=== PATIENT | female | born 1940 | race Caucasian/White ===

== ENCOUNTER 2020-05-23 10:08 | Inpatient (IN) ==
[2020-05-23] MEDS ORDERED: Ipratropium/Albuterol Neb 3 ML IH ONE (10:19)
[2020-05-23] MEDS ORDERED: Aspirin 81 MG TAB.CHEW PO STA (10:19)
[2020-05-23] MEDS ORDERED: methylPREDNISolone 125 MG/2 ML VIAL IVP ONE (10:19)
[2020-05-23 11:13] LABS: Basophils % 0.2 %; Eosinophils % 0.2 %; Hematocrit 41.6 % (35.3-44.9); Hemoglobin 12.9 g/dL (11.5-15.4); Immature Granulocytes % 0.5 % (0-4); Lymphocytes # 0.4 K/mcL (0.6-4.6); Lymphocytes % 4.2 %; Mean Corpuscular Hemoglobin 27.3 pg (28.0-33.3); Mean Corpuscular Volume 88.1 fL (83.0-100.0); Mean Platelet Volume 9.5 fL (9.4-12.4); Monocytes # 0.7 K/mcL (0.0-1.3); Monocytes % 7.8 %; Neutrophils # 8.1 K/mcL (1.6-8.9); Platelet Count 308 K/mcL (140-400); Red Blood Count 4.72 M/mcL (3.82-4.97); Red Cell Distribution Width 13.8 % (11.5-14.5); Segmented Neutrophils % 87.1 %; White Blood Count 9.3 K/mcL (4.3-11.1)
[2020-05-23 11:17] LABS: VBG HCO3 28 mEq/L (21-27); VBG PCO2 44 mmHg (41-51); VBG PH 7.41 pH Units (7.32-7.42); VBG PO2 46 mmHg (25-50)
[2020-05-23 11:18] LABS: INR 1.1; Prothrombin Time 12.9 Seconds (9.4-12.1)
[2020-05-23 11:21] LABS: Activated Partial Thrombo Time 29.3 Seconds (26.0-36.0)
[2020-05-23] MEDS ORDERED: Isovue-370 500 ML BOTTLE IVP ONE ×2 (11:28→18:03)
[2020-05-23 11:35] LABS: Alanine Aminotransferase 8 Units/L (7-52); Albumin 3.4 g/dL (3.5-5.7); Albumin/Globulin Ratio 1.2 (1.1-2.2); Alkaline Phosphatase 215 Units/L (34-104); Aspartate Amino Transferase 16 Units/L (13-39); BUN/Creatinine Ratio 28 (6-26); Bilirubin,Direct 0.1 mg/dL (0.0-0.2); Bilirubin,Indirect 0.4 mg/dL (0.0-1.0); Bilirubin,Total 0.5 mg/dL (0.3-1.0); Blood Urea Nitrogen 18 mg/dL (8-23); Calcium 8.8 mg/dL (8.6-10.3); Carbon Dioxide 27 mEq/L (23-29); Chloride 102 mEq/L (98-107); Globulin 2.9 g/dL (2.4-3.5); Glucose 128 mg/dL (70-105); Osmolality,Calculated 292 (280-300); Potassium 3.8 mEq/L (3.5-5.1); Sodium 139 mEq/L (136-145); Total Protein 6.3 g/dL (6.4-8.9); Troponin I < 0.03 ng/mL (< 0.04); eGFR For African Americans > 60 (> 60); eGFR For Non-African Americans > 60 (> 60)
[2020-05-23] MEDS ORDERED: Ondansetron 4 MG/2 ML VIAL IVP PRN (14:58)
[2020-05-23] MEDS ORDERED: Naloxone 0.4 MG/ML INJ IVP PRN (14:58)
[2020-05-23] MEDS: Ipratropium/Albuterol Neb 3 ML IH SCH ×2 (15:27→21:54)
[2020-05-23] MEDS: *HR* Heparin 5,000 UNIT/ML VIAL SQ SCH (17:55)
[2020-05-23] MEDS: lisinopriL 10 MG TABLET PO SCH (21:28)
[2020-05-24] MEDS: Ipratropium/Albuterol Neb 3 ML IH SCH ×4 (03:56→22:43)
[2020-05-24 04:12] LABS: BUN/Creatinine Ratio 32 (6-26); Blood Urea Nitrogen 14 mg/dL (8-23); Calcium 8.4 mg/dL (8.6-10.3); Carbon Dioxide 28 mEq/L (23-29); Chloride 105 mEq/L (98-107); Glucose 161 mg/dL (70-105); Osmolality,Calculated 292 (280-300); Potassium 3.7 mEq/L (3.5-5.1); Sodium 139 mEq/L (136-145); eGFR For African Americans > 60 (> 60); eGFR For Non-African Americans > 60 (> 60)
[2020-05-24 05:11] LABS: Hematocrit 33.3 % (35.3-44.9); Hemoglobin 10.4 g/dL (11.5-15.4); Immature Granulocytes % 0.6 % (0-4); Lymphocytes # 0.4 K/mcL (0.6-4.6); Lymphocytes % 4.4 %; Mean Corpuscular HGB Conc 31.2 g/dL (31.6-35.5); Mean Corpuscular Hemoglobin 27.3 pg (28.0-33.3); Mean Corpuscular Volume 87.4 fL (83.0-100.0); Mean Platelet Volume 9.5 fL (9.4-12.4); Monocytes # 0.6 K/mcL (0.0-1.3); Monocytes % 6.7 %; Neutrophils # 7.6 K/mcL (1.6-8.9); Platelet Count 258 K/mcL (140-400); Red Blood Count 3.81 M/mcL (3.82-4.97); Red Cell Distribution Width 13.7 % (11.5-14.5); Segmented Neutrophils % 88.3 %; White Blood Count 8.6 K/mcL (4.3-11.1)
[2020-05-24] MEDS: *HR* Heparin 5,000 UNIT/ML VIAL SQ SCH (06:06)
[2020-05-24] MEDS: lisinopriL 10 MG TABLET PO SCH ×2 (08:22→20:52)
[2020-05-24] MEDS: Famotidine 20 MG TABLET PO SCH (08:22)
[2020-05-24 11:25] LABS: Bilirubin,Urine Negative (Negative); Blood,Urine Negative (Negative); Clarity,Urine Clear (Clear); Color,Urine Yellow (Yellow); Glucose,Urine (UA) Normal (Normal); Ketones,Urine Negative (Negative); Leukocyte Esterase,Urine Negative (Negative); Mucus,Urine Few per lpf (None-Few); Nitrite,Urine Negative (Negative); Protein,Urine 30 mg/dL (Neg-Trace); RBC,Urine 0-3 per hpf (0-3); Specific Gravity,Urine > 1.030 (1.010-1.025); Squamous Epithelial Cell,Urine Few per hpf (None-Few); Urobilinogen,Urine Normal (Normal); WBC,Urine 0-3 per hpf (0-3)
[2020-05-24] MEDS: predniSONE 20 MG TABLET PO SCH (12:38)
[2020-05-25] MEDS: Ipratropium/Albuterol Neb 3 ML IH SCH ×4 (04:10→21:57)
[2020-05-25 06:13] LABS: Basophils % 0.1 %; Eosinophils % 0.1 %; Hematocrit 35.3 % (35.3-44.9); Hemoglobin 10.9 g/dL (11.5-15.4); Immature Granulocytes % 0.4 % (0-4); Lymphocytes # 0.8 K/mcL (0.6-4.6); Lymphocytes % 8.9 %; Mean Corpuscular HGB Conc 30.9 g/dL (31.6-35.5); Mean Corpuscular Hemoglobin 28.2 pg (28.0-33.3); Mean Corpuscular Volume 91.2 fL (83.0-100.0); Mean Platelet Volume 9.9 fL (9.4-12.4); Monocytes # 0.7 K/mcL (0.0-1.3); Monocytes % 7.2 %; Neutrophils # 7.7 K/mcL (1.6-8.9); Platelet Count 295 K/mcL (140-400); Red Blood Count 3.87 M/mcL (3.82-4.97); Segmented Neutrophils % 83.3 %; White Blood Count 9.2 K/mcL (4.3-11.1)
[2020-05-25 06:30] LABS: BUN/Creatinine Ratio 37 (6-26); Blood Urea Nitrogen 19 mg/dL (8-23); Calcium 8.7 mg/dL (8.6-10.3); Carbon Dioxide 27 mEq/L (23-29); Chloride 107 mEq/L (98-107); Glucose 100 mg/dL (70-105); Osmolality,Calculated 294 (280-300); Sodium 141 mEq/L (136-145); eGFR For African Americans > 60 (> 60); eGFR For Non-African Americans > 60 (> 60)
[2020-05-25] MEDS ORDERED: Ketorolac 15 MG/ML VIAL IVP ONE (09:19)
[2020-05-25] MEDS ORDERED: Gadolinium Contrast Agent (WT Based) IV PRN (15:26)
[2020-05-25] MEDS: lisinopriL 10 MG TABLET PO SCH ×2 (17:01→20:06)
[2020-05-25] MEDS: Famotidine 20 MG TABLET PO SCH (18:01)
[2020-05-25] MEDS: predniSONE 20 MG TABLET PO SCH (20:09)
[2020-05-26] MEDS: Ipratropium/Albuterol Neb 3 ML IH SCH ×3 (03:49→15:40)
[2020-05-26 05:56] LABS: Basophils % 0.2 %; Hemoglobin 11.4 g/dL (11.5-15.4); Immature Granulocytes % 0.7 % (0-4); Lymphocytes # 0.2 K/mcL (0.6-4.6); Lymphocytes % 3.9 %; Mean Corpuscular HGB Conc 30.8 g/dL (31.6-35.5); Mean Corpuscular Volume 90.9 fL (83.0-100.0); Mean Platelet Volume 9.2 fL (9.4-12.4); Monocytes # 0.2 K/mcL (0.0-1.3); Monocytes % 3.3 %; Neutrophils # 5.6 K/mcL (1.6-8.9); Platelet Count 293 K/mcL (140-400); Red Blood Count 4.07 M/mcL (3.82-4.97); Red Cell Distribution Width 14.1 % (11.5-14.5); Segmented Neutrophils % 91.9 %; White Blood Count 6.1 K/mcL (4.3-11.1)
[2020-05-26 06:22] LABS: BUN/Creatinine Ratio 38 (6-26); Blood Urea Nitrogen 20 mg/dL (8-23); Calcium 8.6 mg/dL (8.6-10.3); Carbon Dioxide 27 mEq/L (23-29); Chloride 106 mEq/L (98-107); Glucose 158 mg/dL (70-105); Osmolality,Calculated 300 (280-300); Sodium 142 mEq/L (136-145); eGFR For African Americans > 60 (> 60); eGFR For Non-African Americans > 60 (> 60)
[2020-05-26 07:14] VITALS: BP 133/64
[2020-05-26] MEDS: lisinopriL 10 MG TABLET PO SCH (08:41)
[2020-05-26] MEDS: predniSONE 20 MG TABLET PO SCH (08:41)
[2020-05-26] MEDS: Famotidine 20 MG TABLET PO SCH (08:42)
== END 2020-05-26 17:40 | disposition home health service (06) | DRG 180 ==
LOC: 3BNU 10:08 → EMEROOARM 10:08 → 3BNU 14:55 → SUATTDRO 05-24 16:11
PROVIDERS: ADMIT Internal Medicine; ATTEND Registered Nurse

== ENCOUNTER 2020-07-26 22:08 | Observation (INO) ==
[2020-07-26] MEDS ORDERED: Ondansetron 4 MG/2 ML VIAL IVP ONE (22:47)
[2020-07-26] MEDS ORDERED: 0.9 % Sodium Chloride 1,000 ML IVC ONE (22:47)
[2020-07-26 23:13] LABS: Basophils % 0.4 %; Eosinophils # 0.1 K/mcL (0.0-0.6); Eosinophils % 1.3 %; Hematocrit 31.7 % (35.3-44.9); Hemoglobin 9.5 g/dL (11.5-15.4); Immature Granulocytes % 3.7 % (0-4); Lymphocytes # 0.3 K/mcL (0.6-4.6); Mean Corpuscular Hemoglobin 25.9 pg (28.0-33.3); Mean Corpuscular Volume 86.4 fL (83.0-100.0); Mean Platelet Volume 9.1 fL (9.4-12.4); Monocytes # 0.7 K/mcL (0.0-1.3); Monocytes % 12.2 %; Neutrophils # 4.2 K/mcL (1.6-8.9); Platelet Count 242 K/mcL (140-400); Red Blood Count 3.67 M/mcL (3.82-4.97); Red Cell Distribution Width 16.4 % (11.5-14.5); Segmented Neutrophils % 77.4 %; White Blood Count 5.4 K/mcL (4.3-11.1)
[2020-07-26 23:20] LABS: INR 1.3; Prothrombin Time 14.6 Seconds (9.4-12.1)
[2020-07-26 23:23] LABS: Activated Partial Thrombo Time 29.7 Seconds (26.0-36.0)
[2020-07-26 23:34] LABS: Alanine Aminotransferase 15 Units/L (7-52); Albumin 2.8 g/dL (3.5-5.7); Albumin/Globulin Ratio 1.2 (1.1-2.2); Alkaline Phosphatase 426 Units/L (34-104); Aspartate Amino Transferase 60 Units/L (13-39); BUN/Creatinine Ratio 35 (6-26); Bilirubin,Direct 0.1 mg/dL (0.0-0.2); Bilirubin,Indirect 0.4 mg/dL (0.0-1.0); Bilirubin,Total 0.5 mg/dL (0.3-1.0); Blood Urea Nitrogen 22 mg/dL (8-23); Calcium 7.9 mg/dL (8.6-10.3); Carbon Dioxide 27 mEq/L (23-29); Chloride 106 mEq/L (98-107); Ethanol < 10 mg/dL (Less than 10); Globulin 2.4 g/dL (2.4-3.5); Glucose 121 mg/dL (70-105); Osmolality,Calculated 297 (280-300); Potassium 3.7 mEq/L (3.5-5.1); Sodium 141 mEq/L (136-145); Total Protein 5.2 g/dL (6.4-8.9); eGFR For African Americans > 60 (> 60); eGFR For Non-African Americans > 60 (> 60)
[2020-07-26 23:44] LABS: Troponin I 0.05 ng/mL (< 0.04)
[2020-07-27 01:25] LABS: Bilirubin,Urine Negative (Negative); Blood,Urine Negative (Negative); Clarity,Urine Clear (Clear); Color,Urine Yellow (Yellow); Glucose,Urine (UA) Normal (Normal); Ketones,Urine Negative (Negative); Leukocyte Esterase,Urine Negative (Negative); Nitrite,Urine Negative (Negative); PH,Urine 5.5 pH Units (5.0-8.0); Protein,Urine Trace mg/dL (Neg-Trace); Specific Gravity,Urine 1.019 (1.010-1.025)
[2020-07-27] MEDS ORDERED: Acetaminophen 325 MG TABLET PO PRN ×2 (01:28→15:02)
[2020-07-27] MEDS ORDERED: Naloxone 0.4 MG/ML INJ IVP PRN (01:28)
[2020-07-27 01:35] LABS: Amphetamine Screen,Urine Negative ng/mL (Cutoff=1000); Barbiturate Screen,Urine Negative ng/mL (Cutoff=200); Benzodiazepines Screen,Urine Negative ng/mL (Cutoff=200); Cannabinoid Screen,Urine Negative ng/mL (Cutoff = 50); Cocaine Screen,Urine Negative ng/mL (Cutoff= 300); Opiate Screen,Urine Negative ng/mL (Cutoff=300); Phencyclidine Screen,Urine Negative ng/mL (Cutoff=25)
[2020-07-27] MEDS: *HR* Heparin 5,000 UNIT/ML VIAL SQ SCH ×2 (05:43→17:25)
[2020-07-27] MEDS ORDERED: lisinopriL 10 MG TABLET PO SCH (09:00)
[2020-07-27] MEDS: Famotidine 20 MG TABLET PO SCH (09:04)
[2020-07-27] MEDS: Furosemide 20 MG TABLET PO SCH (09:04)
[2020-07-27] MEDS ORDERED: 0.9 % Sodium Chloride 1,000 ML IVC SCH (11:15)
[2020-07-28] MEDS: *HR* Heparin 5,000 UNIT/ML VIAL SQ SCH ×2 (05:07→16:46)
[2020-07-28] MEDS: Famotidine 20 MG TABLET PO SCH (09:44)
[2020-07-28] MEDS: Furosemide 20 MG TABLET PO SCH (09:44)
[2020-07-28] MEDS: lisinopriL 10 MG TABLET PO SCH (09:45)
[2020-07-28] MEDS: Cholecalciferol (D-3) 1,000 UNIT (25MCG) TABLET PO SCH (16:46)
[2020-07-28] MEDS ORDERED: Perflutren Lipid Microsphere 1.3 ML in 0.9 % Sodium Chloride 8.7 ML IVP PRN (17:00)
[2020-07-29 02:49] LABS: Alanine Aminotransferase 14 Units/L (7-52); Albumin 2.5 g/dL (3.5-5.7); Alkaline Phosphatase 360 Units/L (34-104); Aspartate Amino Transferase 40 Units/L (13-39); BUN/Creatinine Ratio 28 (6-26); Bilirubin,Total 0.5 mg/dL (0.3-1.0); Blood Urea Nitrogen 11 mg/dL (8-23); Calcium 8.1 mg/dL (8.6-10.3); Carbon Dioxide 29 mEq/L (23-29); Chloride 104 mEq/L (98-107); Globulin 2.4 g/dL (2.4-3.5); Glucose 99 mg/dL (70-105); Magnesium 1.8 mg/dL (1.6-2.6); Osmolality,Calculated 291 (280-300); Potassium 3.3 mEq/L (3.5-5.1); Sodium 141 mEq/L (136-145); Total Protein 4.9 g/dL (6.4-8.9); eGFR For African Americans > 60 (> 60); eGFR For Non-African Americans > 60 (> 60)
[2020-07-29 02:50] LABS: Basophils # 0.1 K/mcL (0.0-0.2); Basophils % 0.7 %; Eosinophils # 0.1 K/mcL (0.0-0.6); Eosinophils % 1.8 %; Hematocrit 28.7 % (35.3-44.9); Hemoglobin 8.8 g/dL (11.5-15.4); Immature Granulocytes % 4.9 % (0-4); Lymphocytes # 0.4 K/mcL (0.6-4.6); Lymphocytes % 5.9 %; Mean Corpuscular HGB Conc 30.7 g/dL (31.6-35.5); Mean Corpuscular Hemoglobin 25.6 pg (28.0-33.3); Mean Corpuscular Volume 83.4 fL (83.0-100.0); Mean Platelet Volume 9.3 fL (9.4-12.4); Monocytes # 0.8 K/mcL (0.0-1.3); Monocytes % 11.4 %; Neutrophils # 5.1 K/mcL (1.6-8.9); Platelet Count 265 K/mcL (140-400); Red Blood Count 3.44 M/mcL (3.82-4.97); Red Cell Distribution Width 16.2 % (11.5-14.5); Segmented Neutrophils % 75.3 %; White Blood Count 6.8 K/mcL (4.3-11.1)
[2020-07-29] MEDS: *HR* Heparin 5,000 UNIT/ML VIAL SQ SCH ×2 (04:51→16:54)
[2020-07-29] MEDS: Cholecalciferol (D-3) 1,000 UNIT (25MCG) TABLET PO SCH (07:34)
[2020-07-29] MEDS: Furosemide 20 MG TABLET PO SCH (07:34)
[2020-07-29] MEDS: lisinopriL 10 MG TABLET PO SCH (07:34)
[2020-07-29] MEDS: Famotidine 20 MG TABLET PO SCH (07:34)
[2020-07-29 11:09] LABS: % Iron Saturation 19 % (15-50); Iron 29 mcg/dL (50-170); Transferrin 108 mg/dL (203-362)
[2020-07-29 11:36] LABS: Folate 8.4 ng/mL (3.0-16.0)
[2020-07-29] MEDS: Isovue-370 500 ML BOTTLE IVP ONE (17:15)
[2020-07-29] MEDS: Trolamine Salicylate/Aloe Vera 85 APPL/85 GM TUBE TP SCH (21:22)
[2020-07-30 03:55] LABS: Hematocrit 33.2 % (35.3-44.9); Mean Corpuscular HGB Conc 30.1 g/dL (31.6-35.5); Mean Corpuscular Hemoglobin 25.3 pg (28.0-33.3); Mean Corpuscular Volume 83.8 fL (83.0-100.0); Mean Platelet Volume 9.2 fL (9.4-12.4); Platelet Count 314 K/mcL (140-400); Red Blood Count 3.96 M/mcL (3.82-4.97); Red Cell Distribution Width 16.1 % (11.5-14.5)
[2020-07-30 04:15] LABS: BUN/Creatinine Ratio 23 (6-26); Blood Urea Nitrogen 9 mg/dL (8-23); Calcium 8.4 mg/dL (8.6-10.3); Carbon Dioxide 28 mEq/L (23-29); Chloride 102 mEq/L (98-107); Glucose 110 mg/dL (70-105); Magnesium 1.9 mg/dL (1.6-2.6); Osmolality,Calculated 291 (280-300); Potassium 3.4 mEq/L (3.5-5.1); Sodium 141 mEq/L (136-145); eGFR For African Americans > 60 (> 60); eGFR For Non-African Americans > 60 (> 60)
[2020-07-30] MEDS: *HR* Heparin 5,000 UNIT/ML VIAL SQ SCH ×2 (05:24→15:23)
[2020-07-30] MEDS: Cholecalciferol (D-3) 1,000 UNIT (25MCG) TABLET PO SCH (09:01)
[2020-07-30] MEDS: Furosemide 20 MG TABLET PO SCH (09:01)
[2020-07-30] MEDS: lisinopriL 10 MG TABLET PO SCH (09:02)
[2020-07-30] MEDS: Famotidine 20 MG TABLET PO SCH (09:02)
[2020-07-30] MEDS ORDERED: Potassium Chloride Elixir 20 MEQ/15 ML UDC PO ONE (09:07)
[2020-07-30] MEDS: Trolamine Salicylate/Aloe Vera 85 APPL/85 GM TUBE TP SCH (09:52)
[2020-07-30 18:12] LABS: Adenovirus Not Detected (Not Detect); Bordetella Pertussis Not Detected (Not Detect); Chlamydophila pneumoniae Not Detected (Not Detect); Coronavirus 229E Not Detected (Not Detect); Coronavirus HKU1 Not Detected (Not Detect); Coronavirus NL63 Not Detected (Not Detect); Coronavirus OC43 Not Detected (Not Detect); Human Metapneumovirus Not Detected (Not Detect); Human Rhinovirus/Enterovirus Not Detected (Not Detect); Influenza A Subtype 2009 H1 Not Detected (Not Detect); Influenza B Not Detected (Not Detect); Mycoplasma pneumoniae Not Detected (Not Detect); Parainfluenza Virus 1 Not Detected (Not Detect); Parainfluenza Virus 2 Not Detected (Not Detect); Parainfluenza Virus 3 Not Detected (Not Detect); Parainfluenza Virus 4 Not Detected (Not Detect); Respiratory Syncytial Virus Not Detected (Not Detect); SARS-CoV-2 Not Detected (Not Detect)
[2020-07-30 19:12] VITALS: BP 144/58
== END 2020-07-30 19:50 ==
LOC: EMEROOARM 22:08 → 2NENU 22:08 → SUATTDRO 07-27 01:41 → 2NENU 07-27 02:32 → 2ANU 07-28 20:09
PROVIDERS: ADMIT Internal Medicine; ATTEND General Practice